=== PATIENT | female | born 1950 | race Caucasian/White ===

== ENCOUNTER 2019-12-28 02:12 | Outpatient (CLI) | payer MEDICARE, OTHER | END 2019-12-28 02:13 | disposition critical access hospital (66) | LOC: EMS 02:12 | PROVIDERS: ATTEND Surgery | DX: S51.851A Open bite of right forearm, initial encounter (principal); W54.0XXA Bitten by dog, initial encounter; Y93.K9 Activity, other involving animal care; Y92.009 Unspecified place in unspecified non-institutional (private) residence as the place of occurrence of the external cause | CPT/HCPCS: A0425; A0429 ==

== ENCOUNTER 2019-12-28 02:30 | Emergency (ER) | payer MEDICARE, OTHER ==
[2019-12-28] MEDS ORDERED: BUFFERED LIDOCAINE 10 ML SYRINGE SUBQ STA (02:52)
[2019-12-28] MEDS ORDERED: BACITRACIN ZINC OINT 1 PACKET TOP STA (03:27)
--- NOTE | 2019-12-28 03:28 | ED Physician Documentation ---
PD HPI UPPER EXT INJURY - Stated complaint Stated Complaint: DOG BITE - Chief complaint Chief Complaint: Wound - History obtained from History obtained from: Patient - History of Present Illness Location: Right, Forearm Type of injury: Other (dog bite) Where injury occurred: Home Timing - onset: Enter time (129), Today Timing - duration: Hours Timing - details: Abrupt onset, Still present Improved by: Rest, Immobilization, Dressing Worsened by: Moving, Palpating Associated symptoms: No: Weakness, Numbness, Tingling, Swelling Contributing factors: No: Anticoagulated Similar symptoms before: Diagnosis (dog bite) Recently seen: Clinic (has been placed onto augmentin for a bite she had last week.) - Additonal information Additional information: 69-year-old female who has 7 dogs was in bed tonight when one of her dogs came up to the bed and interacted with another dog and the 2 of them are not getting along. The 2 dogs fought the patient got in between them and she has bites to her forearm. She was able to control bleeding with direct pressure and bandaging. 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 : None HEENT: None Psych: Anxiety Musculoskeletal: None Derm: None - Past Surgical History Past Surgical History: No - Present Medications Home Medications: Ambulatory Orders Medication Instructions Recorded Confirmed Losartan [Cozaar] 50 mg PO DAILY 12/28/19 12/28/19 PARoxetine [Paxil] 10 mg PO DAILY 12/28/19 12/28/19 - Allergies Allergies/Adverse Reactions: Allergies Allergy/AdvReac Type Severity Reaction Status Date / Time No Known Drug Allergies Allergy Verified 12/28/19 02:39 - Social History Does the pt smoke?: No Smoking Status: Never smoker Does the pt drink ETOH?: Yes ETOH Use: Beer Does the pt have substance abuse?: No - Immunizations Immunizations are current?: Yes Immunizations: TDAP current <10years PD ED PE NORMAL - Vitals Vital signs reviewed: Yes (hypertensive ) - General General: Alert and oriented X 3, No acute distress, Well developed/nourished - HEENT HEENT: Atraumatic, PERRL, EOMI - Respiratory Respiratory: No respiratory distress - Derm Derm: Normal color, Warm and dry, No rash - Extremities Extremities: No deformity, Normal ROM s pain, No edema, Other (To the dorsal surface of the forearm is an irregular 4cm laceration with multiple flaps a deep end and some dog hair. There are 2 other 1cm puncture wounds to the ventral and dorsal surface. distal n/v intact. 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, No motor deficit, No sensory deficit, Normal speech Eye Opening: Spontaneous Motor: Obeys Commands Verbal: Oriented GCS Score: 15 - Psych Psych: Normal mood, Normal affect Results - Vitals Vitals: Vital Signs - 24 hr 12/28/19 02:34 Temperature 36.0 C L Heart Rate 96 Respiratory 18 Rate Blood Pressure 175/56 H O2 Saturation 96 Oxygen O2 Source Room air Procedures - Laceration (location) forearm Length in cm: 4 Wound type: Stellate, Irregular, Flap, Into subcut fat, Contaminated Neurovascular status: Sensory intact, Motor intact Anesthesia: Lidocaine 1%, With bicarb Wound Preparation: Hibiclens, Irrigated copiously NS (total of one liter saline), Wound explored, To the base Skin layer closure: Nylon, Size #-0 - enter number (4-0), Sutures - enter # (1) Other: Patient tolerated well, No complications, Neurovascular intact, Dressing applied, Tetanus UTD Complexity: Simple PD MEDICAL DECISION MAKING - ED course Complexity details: considered differential, d/w patient ED course: 69-year-old female with contaminated dog bites to the right forearm has a longer irregular laceration and 2 puncture white that are deep. These were all infiltrated with 1% lidocaine and irrigated copiously with removal of dog hair and exploration to the base. The longer laceration is reapproximated with a single suture. The wounds are otherwise left open. The patient is already on Augmentin for a bite she has to her right thumb. This was started 3 days ago and she will continue on the augmentin. Departure - Departure Disposition: 01 Home, Self Care Clinical Impression: Animal bite with open wound Instructions: ED Bite Dog Follow-Up: Your, doctor [Other] Comments: The suture should be removed in 7-10 days. If you develop signs of infection d espite the antibiotic return to the ED or follow up with your regular doctor for further treatment.
[2019-12-28 06:33] VITALS: BP 169/87
== END 2019-12-28 06:32 | disposition home or self-care (01) ==
LOC: ED 02:30
DX: S51.851A Open bite of right forearm, initial encounter (principal); S50.871A Other superficial bite of right forearm, initial encounter; W54.0XXA Bitten by dog, initial encounter; Y93.89 Activity, other specified; Y92.003 Bedroom of unspecified non-institutional (private) residence as the place of occurrence of the external cause; I10 Essential (primary) hypertension
CPT/HCPCS: 12002; 99282; 99283; A9270

== ENCOUNTER 2021-04-30 08:48 | Emergency (ER) | payer MEDICARE, OTHER ==
[2021-04-30 08:57] VITALS: BP 143/80
[2021-04-30] MEDS ORDERED: SULFAMETH/TRIMETH DS 800/160 MG TABLET PO STA (09:41)
[2021-04-30] MEDS ORDERED: cephALEXin 250 MG CAPSULE PO STA (09:41)
--- NOTE | 2021-04-30 09:46 | ED Physician Documentation ---
PD HPI UPPER EXT INJURY - Stated complaint Stated Complaint: DOG BITE, RT WRIST - Chief complaint Chief Complaint: Wound - History obtained from History obtained from: Patient - Additonal information Additional information: The patient comes to the emergency department for chief complaint of dog bite to right wrist. She states that she was bitten by her own dog and that it was fighting with 2 of her other dogs. She states that she tried to break the fight up, and the dog ended up biting her in the process while trying to bite the other dogs. Patient states that she immediately washed the wounds, which were located on her right wrist, and though the bite hurt, she did not think much of the injury. However, she noticed this morning that the area was red and swollen. She denies any fevers or chills. She is not a diabetic. No trouble moving her fingers. She states the dog is fully immunized and that her last tetanus shot was "recently" definitely within the last 10 years she states. No other complaints at this time. Review of Systems Ten Systems: 10 systems reviewed and negative Constitutional: reports: Reviewed and negative Eyes: reports: Reviewed and negative Ears: reports: Reviewed and negative Nose: reports: Reviewed and negative Throat: reports: Reviewed and negative Cardiac: reports: Reviewed and negative Respiratory: reports: Reviewed and negative GI: reports: Reviewed and negative : reports: Reviewed and negative Skin: reports: Bite / sting, Other (Erythema and swelling) Musculoskeletal: reports: Extremity swelling Neurologic: reports: Reviewed and negative Psychiatric: reports: Reviewed and negative Endocrine: reports: Reviewed and negative Immunocompromised: reports: Reviewed and negative PD PAST MEDICAL HISTORY - Past Medical History Cardiovascular: Hypertension Respiratory: None Neuro: None Endocrine/Autoimmune: None GI: None 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 : None HEENT: None Psych: Anxiety Musculoskeletal: None Derm: None - Past Surgical History Past Surgical History: No - Present Medications Home Medications: Ambulatory Orders Medication Instructions Recorded Confirmed Losartan [Cozaar] 50 mg PO DAILY 12/28/19 12/28/19 PARoxetine [Paxil] 10 mg PO DAILY 12/28/19 12/28/19 Sulfamethox/Trimeth 800/160 1 each PO BID #14 tablet 04/30/21 [Bactrim Ds 800/160] cephALEXin [Keflex] 500 mg PO Q6H #28 cap 04/30/21 - Allergies Allergies/Adverse Reactions: Allergies Allergy/AdvReac Type Severity Reaction Status Date / Time No Known Drug Allergies Allergy Verified 04/30/21 08:54 - Social History Does the pt smoke?: No Smoking Status: Never smoker Does the pt drink ETOH?: Yes Does the pt have substance abuse?: No - Immunizations Immunizations are current?: Yes Immunizations: TDAP current <10years PD ED PE NORMAL - Vitals Vital signs reviewed: Yes - General General: Alert and oriented X 3, No acute distress, Well developed/nourished - HEENT HEENT: Atraumatic, PERRL, EOMI, Moist mucous membranes - Neck Neck: Supple, no meningeal sign - Cardiac Cardiac: Strong equal pulses - Respiratory Respiratory: No respiratory distress - Derm Derm: Warm and dry, Other (See free text) - Extremities Extremities: No deformity, Other (See free text exam regarding right wrist) - Neuro Neuro: Alert and oriented X 3, 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 Within erythematous area are 2 superficial, scabbed lacerations 1 cm length each. No drainage. A superficial skin tear is also noted dorsally. Mild to moderate edema of right wrist with mild edema of dorsum of hand. No erythema on the hand dorsum. An erythematous streak is noted to be ascending proximally up the patient's right forearm. Moderate tenderness to palpation. No induration or fluctuance. Results - Vitals Vitals: Vital Signs - 24 hr 04/30/21 08:55 Temperature 36.7 C Heart Rate 77 Respiratory 18 Rate Blood Pressure 143/80 H O2 Saturation 98 Oxygen O2 Source Room air PD MEDICAL DECISION MAKING - ED course Complexity details: considered differential, d/w patient ED course: The patient was treated with Keflex and Bactrim in the emergency department. I have advised her that it is very important that she stays on these antibiotics and does not miss any doses, to avoid worsening of the arm. The patient is up-to-date on tetanus, and her wounds are scabbed, and repair is not appropriate at this time. The police have already talked to the patient about the dog bite here in the emergency department. I have provided prescriptions for the patient for her medications, and she is advised to return to the emergency department for any worsening of her symptoms. Departure - Departure Disposition: 01 Home, Self Care Clinical Impression: Dog bite of right wrist with infection Qualifiers: Encounter type: initial encounter Qualified Code(s): S61.551A - Open bite of right wrist, initial encounter; L08.9 - Local infection of the skin and subcutaneous tissue, unspecified; W54.0XXA - Bitten by dog, initial encounter Condition: Stable Instructions: ED Staph Infec Abx Tx Only, ED Bite Animal General Prescriptions: Sulfamethox/Trimeth 800/160 [Bactrim Ds 800/160] 1 each PO BID #14 tablet cephALEXin [Keflex] 500 mg PO Q6H #28 cap Comments: You have been treated with your first doses of antibiotics here in the emergency department. It is extremely important that you pick these antibiotics up today and start taking them at home today, as well. You should take 3 more doses of the Keflex, or cephalexin, and 1 more dose this evening of the Bactrim. Please do not miss any doses. If your infection seems to be worsening over the next couple of days, despite the antibiotics, please return to the emergency department for reevaluation.
== END 2021-04-30 10:00 | disposition home or self-care (01) ==
LOC: ED 08:48
DX: S61.551A Open bite of right wrist, initial encounter (principal); L08.9 Local infection of the skin and subcutaneous tissue, unspecified; W54.0XXA Bitten by dog, initial encounter; I10 Essential (primary) hypertension
CPT/HCPCS: 99282; A9270

== ENCOUNTER 2022-06-17 11:47 | Emergency (ER) | payer MEDICARE, OTHER ==
[2022-06-17 11:57] VITALS: BP 164/34
[2022-06-17] MEDS ORDERED: AMOX/CLAV 875 MG/125 MG TABLET PO STA (12:18)
--- NOTE | 2022-06-17 12:20 | ED Physician Documentation ---
History of Present Illness - Stated complaint Stated Complaint: DOG BITE - Chief complaint Chief Complaint: Laceration - History obtained from History obtained from: Patient - Additonal information Additional information: Patient is a 71-year-old female who presents to the emergency department after 2 dog bites. She states that these are her dogs. She states that the dog that bit her was a Kinyarwanda bulldog. She states that it bit the right third digit last week, now red, swollen and there is purulent drainage. She has been soaking this at home. She also was bit on the left thumb last night. 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 : None HEENT: None Psych: Depression, Anxiety Musculoskeletal: Chronic back pain Derm: None - Past Surgical History Past Surgical History: No HEENT: Cataracts - Present Medications Home Medications: Ambulatory Orders Medication Instructions Recorded Confirmed Losartan [Cozaar] 50 mg PO DAILY 12/28/19 06/17/22 PARoxetine [Paxil] 30 mg PO DAILY 12/28/19 06/17/22 Amox/Clav 875/125 [Augmentin] 1 tab PO Q12H #20 tablet 06/17/22 Metoprolol Succinate [Toprol Xl] 25 mg PO DAILY 06/17/22 06/17/22 Rosuvastatin Calcium [Crestor] 5 mg PO HS 06/17/22 06/17/22 hydroCHLOROthiazide [Hydrodiuril] 25 mg PO DAILY 06/17/22 06/17/22 - Allergies Allergies/Adverse Reactions: Allergies Allergy/AdvReac Type Severity Reaction Status Date / Time No Known Drug Allergies Allergy Verified 06/17/22 11:52 - Social History Does the pt smoke?: No Smoking Status: Never smoker Does the pt drink ETOH?: Yes Does the pt have substance abuse?: No - Immunizations Immunizations are current?: Yes Immunizations: TDAP current <10years PD ED PE NORMAL - Vitals Vital signs reviewed: Yes - General General: Alert and oriented X 3, No acute distress - HEENT HEENT: Moist mucous membranes - Derm Derm: Warm and dry - Extremities Extremities: Other (R hand - Swelling, erythema and mild purulent drainage from the dorsum of the right third finger, near the PIP joints. No tenderness along the flexor tendon sheath or along the palmar aspect of the hand. L hand - small laceration to the palmar aspect of the L thumb. NVI.) - Neuro Neuro: Alert and oriented X 3 Results - Vitals Vitals: Vital Signs - 24 hr 06/17/22 11:52 Temperature 36.3 C L Heart Rate 65 Respiratory 16 Rate Blood Pressure 164/34 H O2 Saturation 100 Oxygen O2 Source Room air - Labs Labs: Microbiology 06/17/22 12:14 Wound Culture - Preliminary Finger - Right Middle PD Medical Decision Making - ED course Complexity details: considered differential, d/w patient ED course: Patient with a dog bite to the right third digit that occurred 1 week ago, appears secondarily infected, there is some purulent drainage. No evidence of deep space infection in the hand or tendon involvement. She also has a laceration to the left thumb from yesterday. Due to the length of time this has been open, the location and the fact that it was a dog bite, we will leave this to heal by secondary intention. It is a fairly superficial cut. Neurovascular intact. Tendon intact. We will place on Augmentin and have her follow-up closely with her doctor for further care. Tetanus up-to-date. Patient counseled regarding signs and symptoms for which I believe and urgent re- evaluation would be necessary. Patient with good understanding of and agreement to plan and is comfortable going home at this time This document was made in part using voice recognition software. While efforts are made to proofread this document, sound alike and grammatical errors may occur. Departure - Departure Disposition: 01 Home, Self Care Clinical Impression: Abscess Dog bite Qualifiers: Encounter type: initial encounter Qualified Code(s): W54.0XXA - Bitten by dog, initial encounter Cellulitis Qualifiers: Site of cellulitis: extremity Site of cellulitis of extremity: finger Laterality: right Qualified Code(s): L03.011 - Cellulitis of right finger Condition: Good Instructions: ED Bite Dog, ED Wound Care Follow-Up: your,doctor in 3 days for wound check [Other] Prescriptions: Amox/Clav 875/125 [Augmentin] 1 tab PO Q12H #20 tablet Comments: Your prescriptions were sent to [facility] in [place]. Please follow-up with your doctor for further care. You should have a wound check within 3 days whether here or with your doctor. Please return if you worsen prior to that time. You should start to notice improvement within 24 hours. Keep the wounds clean. The wound on your left thumb will heal on its own. Please change the bandage at least once a day. Discharge Date/Time: 06/17/22 12:50
--- NOTE | 2022-06-19 17:59 | ED Physician Documentation ---
ED Addendum - Addendum Addendum: 06/19/22 17:58 The patient's culture resulted with Staph aureus resistant to penicillin. The patient had been discharged on Augmentin. It is sensitive by culture report to tetracycline as well as sulfa and quinolones. His age is 71 and he is on some blood pressure medicines so I would prefer not to do Bactrim. I will change his prescription to doxycycline 100 mg twice daily for 7 days. It was transmitted to [facility]. I will have nursing staff notify the patient of the change.
== END 2022-06-17 12:50 | disposition home or self-care (01) ==
LOC: ED 11:47
DX: L03.011 Cellulitis of right finger (principal); W54.0XXA Bitten by dog, initial encounter; I10 Essential (primary) hypertension
CPT/HCPCS: 87070; 87205; 99283; A9270; 87181

== ENCOUNTER 2023-11-27 14:00 | Emergency (ER) | payer MEDICARE, OTHER ==
[2023-11-27 14:18] VITALS: BP 148/58; O2SAT 98
--- NOTE | 2023-11-27 14:28 | ED Physician Documentation ---
PD HPI UPPER EXT INJURY - Stated complaint Stated Complaint: DOG BITE LT HAND - Chief complaint Chief Complaint: Wound - History obtained from History obtained from: Patient - Additonal information Additional information: DOG BITE LEFT HAND YESTERDAY, HER OWN DOG WHO IS UTD SHOTS. SHE IS UTD TETANUS. NOW WITH SWELLING OVERNIGHT. NO FEVERS. HAS VALVULAR REPAIR, BUT NO NEED FOR ANTICOAGULATION NOR PROPHY ABX W DENTIST. 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 : None HEENT: None Psych: Depression, Anxiety Musculoskeletal: Chronic back pain Derm: None - Past Surgical History Past Surgical History: Yes HEENT: Cataracts - Present Medications Home Medications: Ambulatory Orders Medication Instructions Recorded Confirmed Losartan [Cozaar] 50 mg PO DAILY 12/28/19 06/17/22 PARoxetine [Paxil] 30 mg PO DAILY 12/28/19 06/17/22 Amox/Clav 875/125 [Augmentin] 1 tab PO Q12H #20 tablet 06/17/22 Metoprolol Succinate [Toprol Xl] 25 mg PO DAILY 06/17/22 06/17/22 Rosuvastatin Calcium [Crestor] 5 mg PO HS 06/17/22 06/17/22 hydroCHLOROthiazide [Hydrodiuril] 25 mg PO DAILY 06/17/22 06/17/22 Doxycycline Hyclate 100 mg PO BID 7 Days #14 cap 06/19/22 Amox/Clav 875/125 [Augmentin] 1 each PO Q12H #20 tablet 11/27/23 - Allergies Allergies/Adverse Reactions: Allergies Allergy/AdvReac Type Severity Reaction Status Date / Time No Known Drug Allergies Allergy Verified 11/27/23 14:05 - Social History Does the pt smoke?: No Smoking Status: Never smoker Does the pt drink ETOH?: Yes Does the pt have substance abuse?: No - Immunizations Immunizations are current?: Yes Immunizations: TDAP current <10years PD ED PE NORMAL - Vitals Vital signs reviewed: Yes - General General: Alert and oriented X 3, No acute distress - Extremities Extremities: Other (PUNCTURE WOUND DORSUM L HAND WITH MILD-MOD SWELLING AND SIMON LULITIS, NO PURULENCE, FULL ROM.) - Neuro Neuro: Alert and oriented X 3 Results - Vitals Vitals: Vital Signs - 24 hr 11/27/23 14:05 Temperature 36.5 C Heart Rate 70 Respiratory 16 Rate Blood Pressure 148/58 H O2 Saturation 98 Oxygen O2 Source Room air PD Medical Decision Making - ED course ED course: MILD WOUND INFECTION P DOG BITE. NOTHING TO CX CLOSE RTED PRECAUTIONS Departure - Departure Disposition: 01 Home, Self Care Clinical Impression: Animal bite with open wound, Cellulitis of left hand Instructions: Bites Scratches Animal Prescriptions: Amox/Clav 875/125 [Augmentin] 1 each PO Q12H #20 tablet Comments: I SENT THE PRESCRIPTION TO [facility] IN [place] HAVE A LOW THRESHOLD TO RETURN IF SWELLING WORSENS, REDNESS WORSENS OR ANY FEVER. Forms: PCP List
[2023-11-27] MEDS: AMOX/CLAV 875 MG/125 MG TABLET PO STA (14:32)
== END 2023-11-27 14:34 | disposition home or self-care (01) ==
LOC: ED 14:00
DX: S61.452A Open bite of left hand, initial encounter (principal); L03.114 Cellulitis of left upper limb; W54.0XXA Bitten by dog, initial encounter; I10 Essential (primary) hypertension; E78.00 Pure hypercholesterolemia, unspecified; F32.A Depression, unspecified; F41.9 Anxiety disorder, unspecified
CPT/HCPCS: 99283; A9270